=== PATIENT | male | born 1955 | race Caucasian/White ===

== ENCOUNTER 2016-10-29 16:19 | Emergency (ER) | payer OTHER ==
[~2016-10-29] VITALS: Ht 175.3 cm; Wt 86.0 kg
[2016-10-29 16:21] VITALS: BP 140/90; PULSE 106; RESP 16; TEMP 99.2; O2SAT 95
[2016-10-29] MEDS ORDERED: ALLE12TA2 PO (16:44)
[2016-10-29] MEDS ORDERED: RESP: ALBUTEROL 2.5 MG/IPRATROPIUM 0.5 MG NEB (SCH) NEB ONE (16:45)
[2016-10-29] MEDS ORDERED: RESP: LIDOCAINE HCL 4% PF 5 ML NEB NEB ONE (16:45)
--- NOTE | 2016-10-29 16:54 | PD ---
HPI Chief Complaint: Cold / Flu Symptoms Time Seen by Provider: 16:37 Travel History International Travel<30 days: No Contact w/Intl Traveler<30days: No Traveled to known affect area: No History of Present Illness HPI The patient is a 61-year-old male who presents to the emergency department for 2 to three-day history of cough and cold symptoms. The patient states his symptoms started on afternoon when he got home from work, he developed sudden myalgias, subjective fevers, chills, and sweats. The patient currently complains of a cough, mostly dry nonproductive, without any shortness of breath. He also complains of mild nausea without any vomiting, diarrhea, or abdominal pain. He complains of myalgias/body aches for the last several days. The patient thinks he may have influenza. The patient does smoke one pack of cigarettes per day. He denies any rash. He denies any significant headache or neck pain. Symptoms are moderate without any alleviating or exacerbating factors. PFSH Past Medical History Heart Rhythm Problems: No Cancer: No Cardiac Catheterization: No Cardiovascular Problems: No High Cholesterol: No Congestive Heart Failure: No Diabetes: No Diminished Hearing: No Genitourinary: No Hepatitis: No Hiatal Hernia: No Immune Disorder: No Musculoskeletal: No Neurologic: No Psychiatric: No Reproductive: No Respiratory: Yes (SPONT. PNEMOTHORAX X 2 , EMPHYSEMA ) Influenza Vaccination: Yes Past Surgical History Abdominal Surgery: No AICD: No Body Medical Devices: NONE Cardiac Surgery: No Coronary Artery Bypass Graft: No Ear Surgery: No Endocrine Surgery: No Eye Surgery: No Genitourinary Surgery: No Gynecologic Surgery: No Joint Replacement: No Oral Surgery: No Pacemaker: No Thoracic Surgery: No Other Surgery: Yes Social History Alcohol Use: Yes (SOCIALLY) Tobacco Use: Yes (3/ PPD) Substance Use: No Allergies-Medications (Allergen,Severity, Reaction): Coded Allergies: No Known Allergies (Verified , 10/29/16) Reported Meds & Prescriptions Reported Meds & Active Scripts Active Reported Angy-D 12 Hour Allergy (Fexofenadine-Pseudoephedrine ER 12 HR) 60-120 Mg Beckie 1 Tab PO BID Review of Systems Except as stated in HPI: all other systems reviewed are Neg General / Constitutional: Positive: Fever, Chills HENT: No: Lightheadedness Cardiovascular: No: Chest Pain or Discomfort Respiratory: Positive: Cough Gastrointestinal: Positive: Nausea, No: Vomiting, Diarrhea, Abdominal Pain Genitourinary: No: Dysuria Musculoskeletal: Positive: Myalgias Skin: No Rash Physical Exam Narrative GENERAL: Awake, alert, pleasant 61-year-old male who appears his stated age and is in no acute respiratory distress. SKIN: Warm and dry. HEAD: Atraumatic. Normocephalic. EYES: Pupils equal and round. No scleral icterus. No injection or drainage. ENT: No nasal bleeding or discharge. Mucous membranes pink and moist. NECK: Trachea midline. No JVD. CARDIOVASCULAR: Regular, tachycardic with a heart rate of 100. RESPIRATORY: No accessory muscle use. Prolonged expiratory phase with wheezes. GASTROINTESTINAL: Abdomen soft, non-tender, nondistended. No rebound tenderness. MUSCULOSKELETAL: No obvious deformities. No clubbing. No cyanosis. No edema. NEUROLOGICAL: Awake and alert. No obvious cranial nerve deficits. Motor grossly within normal limits. Normal speech. PSYCHIATRIC: Appropriate mood and affect; insight and judgment normal. Data Data Last Documented VS Vital Signs Date Time Temp Pulse Resp B/P Pulse Ox O2 Delivery O2 Flow Rate FiO2 10/29/16 16:45 96 Room Air 10/29/16 16:21 99.2 106 16 140/90 Orders Chest, Single Ap (10/29/16 ) Lidocaine Pf 4% Neb (Lidocaine Pf 4% Neb (10/29/16 16:45) Albuterol-Ipratropium Neb (Duoneb Neb) (10/29/16 16:45) Influenzae A/B Antigen (10/29/16 16:44) Prednisone (Deltasone) (10/29/16 17:30) Levofloxacin (Levaquin) (10/29/16 18:15) MDM Medical Decision Making Medical Screen Exam Complete: Yes Emergency Medical Condition: Yes Medical Record Reviewed: Yes Interpretation(s) Date/Time Procedure Status Source Growth 10/29/16 16:52 Influenza Types A,B Antigen (KALEB) - Final Complete Nasal Aspirate NEGATIVE FOR FLU A AND B ANTIGEN.... Differential Diagnosis Differential diagnosis includes bronchitis, pneumonia, influenza, viral syndrome , URI. Narrative Course Chest x-ray was obtained. Influenza screen was sent to lab. The patient was administered one DuoNeb with respiratory lidocaine. Influenza screen is negative. Chest x-ray is positive for left lower lobe pneumonia. The patient was administered Levaquin and prednisone. The patient will be discharged home on Levaquin, prednisone, and albuterol inhaler. He is advised to follow-up with a primary physician and return if symptoms worsen or progress. Diagnosis Primary Impression: Pneumonia Qualified Code: J18.1 - Pneumonia of left lower lobe due to infectious organism Patient Instructions: General Instructions Additional Instructions: Medications as directed. Follow-up with your primary physician. Return if symptoms worsen or progress. Please provide the patient a copy of his influenza screen and chest x-ray results at discharge. Med/Other Pt SpecificInfo: Prescription(s) given Scripts Levofloxacin (Levaquin)500 Mg Uel388 Mg PO DAILY 6 Days Ref 0 Prov:Phillip Marcano MD 10/29/16 Albuterol 18 GM Inh (Ventolin Hfa 18 GM Inh)90 Mcg/Act Aer2 Puff INH Q4H PRN ( SHORTNESS OF BREATH) #1 INHALER Ref 0 Prov:Phillip Marcano MD 10/29/16 Prednisone (Deltasone)20 Mg Tab40 Mg PO DAILY 4 Days Ref 0 Prov:Phillip Marcano MD 10/29/16 Disposition: DISCHARGE HOME Condition: Stable Phillip Marcano MD Oct 29, 2016 16:54
[2016-10-29] MEDS ORDERED: predniSONE 20 MG TAB PO ONE (17:30)
--- NOTE | 2016-10-29 17:39 | RADHPO ---
EXAM DATE/TIME: 10/29/2016 17:14 [facility] COMPARISON: CHEST SINGLE AP, April 14, 2014, 10:40. INDICATIONS : Short of breath, fever, cough MEDICAL HISTORY : pneumothorax SURGICAL HISTORY : None. ENCOUNTER: Initial ACUITY: 4 - 6 days PAIN SCORE: 2/10 LOCATION: Bilateral chest FINDINGS: There are new changes left base. The right lung is clear. The heart and pulmonary vascularity are n ormal. The portion of the bony skeleton visualized is unremarkable. CONCLUSION: New parenchymal changes left base. Jasson Oliva MD FACR on October 29, 2016 at 17:36 Board Certified Radiologist. This report was verified electronically.
[2016-10-29] MEDS ORDERED: LEVOFLOXACIN 500 MG TAB PO ONE (18:15)
[2016-10-29] MEDS ORDERED: VENTAER INH (18:19)
[2016-10-29] MEDS ORDERED: LEVA500T PO (18:19)
[2016-10-29] MEDS ORDERED: PRED-503 PO (18:19)
== END 2016-10-29 18:37 | disposition home or self-care (01) ==
LOC: PHEFT 16:19
DX: J18.1 Lobar pneumonia, unspecified organism (principal); R11.0 Nausea; M79.1 Myalgia; F17.200 Nicotine dependence, unspecified, uncomplicated; Z87.09 Personal history of other diseases of the respiratory system
CPT/HCPCS: 71010; 87804; 94664; 99283; J7512